=== PATIENT | female | born 1995 | race Caucasian/White ===

== ENCOUNTER 2016-08-28 20:11 | Emergency (ER) | payer OTHER ==
[~2016-08-28] VITALS: Ht 160 cm; Wt 72.8 kg
[~2016-08-28 20:11] MED LIST: AMT50 PO; TRAMTAB5 PO
[2016-08-28 20:15] VITALS: TEMP 36.7; Ht 160 cm; Wt 72.8 kg
[2016-08-28] MEDS ORDERED: KETOROLAC TROMETHAMINE 30 MG/ML VIAL IV STA (20:39)
[2016-08-28] MEDS ORDERED: SODIUM CHLORIDE 0.9% 1000ML 1,000 ML IV STA (20:39)
--- NOTE | 2016-08-28 20:45 | EMERGENCY ROOM VISIT NOTE ---
History Report prepared by Elliot: Mame Roldan Under the Supervision of: Dr. Harjinder Andres M.D. First contact with patient: 20:21 Chief Complaint: URINARY SYMPTOMS Stated Complaint: LOW BACK PAIN,ABDPAIN,TROUBLE BREATHING History of Present Illness The patient is a 21 year old female who presents to the Emergency Room with complaints of worsening urinary symptoms for the past 3 days. She notes increased urinary frequency and foul-smelling urine. She is also complaining of lower abdominal pain and right flank pain. She has had UTIs in the past, but this one is different because she is not experiencing any dysuria or burning with urination. The patient reports intermittent fevers and chills. Her LNMP was 2 weeks ago. She denies any chance of a retained tampon. The patient rates her current pain as a 2/10 in severity. She states that lying still helps to alleviate her pain. Source of History: patient Onset: 3 days ago Position: other (urinary bladder) Symptom Intensity: 2/10 Quality: other (foul-smelling) Timing: worsening Modifying Factors (Relieving): other (lying still) Associated Symptoms: + fevers, + chills, + abdominal pain, + back pain Review of Systems See HPI for pertinent positives & negatives. A total of 10 systems reviewed and were otherwise negative. Past Medical & Surgical Medical Problems: (1) Concussion, unspecified Surgical Problems: (1) History of cardiac cath Family History Cancer Diabetes mellitus Heart disease Hypertension Social History Smoking Status: Never Smoker Smokeless Tobacco Use: No Alcohol Use: none Drug Use: none Marital Status: in relationship Housing Status: lives with significant other Occupation Status: employed Current/Historical Medications Scheduled Amitriptyline Hcl (Elavil), 25 MG PO HS Aspirin (Aspirin Ec), 81 MG PO DAILY Control Pills ( Control Pills), 1 TAB PO DAILY Sulfa/Trimethoprim (Bactrim Ds 800MG/160MG), 1 TAB PO BID Scheduled PRN Escitalopram Oxalate (Lexapro), 1 TAB PO DAILY PRN for Anxiety Oxycodone Immediate Rel Tab (Roxicodone Ir), 1-2 TAB PO Q4H PRN for Severe Pain Allergies Coded Allergies: No Known Allergies (Unverified , 08/28/16) Physical Exam Vital Signs Date Time Temp Pulse Resp B/P (MAP) Pulse Ox O2 Delivery O2 Flow Rate FiO2 6/26/17 00:00 88 18 120/74 100 08/28/16 22:18 87 18 111/68 98 08/28/16 20:15 36.7 86 16 121/82 99 Room Air Physical Exam GENERAL: Patient is a healthy-appearing well-nourished young female. HEAD: Normocephalic atraumatic EYES: Ocular movements intact pupils equal and react to light OROPHARYNX mucous membranes are moist no exudates present no erythema or edema present NECK: Supple no nuchal rigidity CHEST: Good equal expansion LUNGS: Clear and equal to auscultation CARDIAC: Normal S1 and S2 ABDOMEN: Soft nontender no guarding BACK: No CVA tenderness EXTREMITIES: No pain upon palpation normal muscle strength in all groups no clubbing cyanosis or edema NEURO: Patient is following commands and answering questions appropriately. Alert and oriented x3 Cranial Nerves 2-12 grossly intact Medical Decision & Procedures ER Provider Diagnostic Interpretation: Radiology results as stated below per my review and radiologist interpretation: RENAL ULTRASOUND HISTORY: Pain Pt c/o b/l flank pain COMPARISON: None. FINDINGS: Right kidney: Maximum dimension 10.4 cm. No evidence for hydronephrosis. Normal corticomedullary differentiation and cortical thickness. Left kidney: Maximum dimension 11.7 cm. No evidence for hydronephrosis. Normal corticomedullary differentiation and cortical thickness. Bladder: No bladder wall thickening. The bilateral ureteral jets were identified. IMPRESSION: Normal renal ultrasound. Electronically signed by: Jorgito Myers M.D. 08/28/2016 10:53 PM Dictated Date/Time: 08/28/2016 10:52 PM Laboratory Results 08/28/16 20:50 Red Blood Count 4.17, Mean Corpuscular Volume 87.3, Mean Corpuscular Hemoglobin 29.5, Mean Corpuscular Hemoglobin Concent 33.8, Mean Platelet Volume 8.4, Neutrophils (%) (Auto) 53.7, Lymphocytes (%) (Auto) 35.6, Monocytes (%) (Auto) 9.7, Eosinophils (%) (Auto) 0.4, Basophils (%) (Auto) 0.4, Neutrophils # (Auto) 2.99, Lymphocytes # (Auto) 1.98, Monocytes # (Auto) 0.54, Eosinophils # (Auto) 0.02, Basophils # (Auto) 0.02 08/28/16 20:50 Test 08/28/16 20:50 08/28/16 21:40 White Blood Count 5.56 K/uL (4.8-10.8) Red Blood Count 4.17 M/uL (4.2-5.4) Hemoglobin 12.3 g/dL (12.0-16.0) Hematocrit 36.4 % (37-47) Mean Corpuscular Volume 87.3 fL (80-100) Mean Corpuscular Hemoglobin 29.5 pg (25-34) Mean Corpuscular Hemoglobin Concent 33.8 g/dl (32-36) Platelet Count 248 K/uL (130-400) Mean Platelet Volume 8.4 fL (7.4-10.4) Neutrophils (%) (Auto) 53.7 % Lymphocytes (%) (Auto) 35.6 % Monocytes (%) (Auto) 9.7 % Eosinophils (%) (Auto) 0.4 % Basophils (%) (Auto) 0.4 % Neutrophils # (Auto) 2.99 K/uL (1.4-6.5) Lymphocytes # (Auto) 1.98 K/uL (1.2-3.4) Monocytes # (Auto) 0.54 K/uL (0.11-0.59) Eosinophils # (Auto) 0.02 K/uL (0-0.5) Basophils # (Auto) 0.02 K/uL (0-0.2) RDW Standard Deviation 43.9 fL (36.4-46.3) RDW Coefficient of Variation 13.7 % (11.5-14.5) Immature Granulocyte % (Auto) 0.2 % Immature Granulocyte # (Auto) 0.01 K/uL (0.00-0.02) Anion Gap 11.0 mmol/L (3-11) Est Creatinine Clear Calc Drug Dose 113.0 ml/min Estimated GFR () 132.4 Estimated GFR (Non- 114.2 BUN/Creatinine Ratio 12.8 (10-20) Calcium Level 8.6 mg/dl (8.5-10.1) Total Bilirubin 0.2 mg/dl (0.2-1) Direct Bilirubin < 0.1 mg/dl (0-0.2) Aspartate Amino Transf (AST/SGOT) 16 U/L (15-37) Alanine Aminotransferase (ALT/SGPT) 15 U/L (12-78) Alkaline Phosphatase 61 U/L (45-117) Total Protein 7.4 gm/dl (6.4-8.2) Albumin 3.6 gm/dl (3.4-5.0) Lipase 99 U/L (73-393) Urine Color YELLOW Urine Appearance CLEAR (CLEAR) Urine pH 5.5 (4.5-7.5) Urine Specific [place] 1.021 (1.000-1.030) Urine Protein NEG (NEG) Urine Glucose (UA) NEG (NEG) Urine Ketones 2+ (NEG) Urine Occult Blood NEG (NEG) Urine Nitrite NEG (NEG) Urine Bilirubin NEG (NEG) Urine Urobilinogen NEG (NEG) Urine Leukocyte Esterase NEG (NEG) Urine Test NEG (NEG) Labs reviewed by ED physician. Medications Administered Medications (Trade) Dose Ordered Sig/Cedric Route Start Time Stop Time Status Last Admin Dose Admin Sodium Chloride 1,000 ml @ 999 mls/hr Q1H1M STAT IV 08/28/16 20:39 08/28/16 21:39 DC 08/28/16 21:00 999 MLS/HR Ketorolac Tromethamine (Toradol Inj) 30 mg NOW STAT IV 08/28/16 20:39 08/28/16 20:41 DC 08/28/16 20:59 30 MG Ceftriaxone Sodium (Rocephin Inj) 1 gm NOW STAT IV 08/28/16 22:52 08/28/16 22:54 DC 08/28/16 23:21 1 GM Trimethoprim/ Sulfamethoxazole (Sulfameth/ Trimeth Ds 800/ 160MG Home Pack) 1 homepack UD ONCE PO 08/28/16 23:00 08/28/16 23:01 DC 08/28/16 23:55 1 HOMEPACK Oxycodone HCl (Roxicodone Immediate Rel 5MG Home Pack) 1 homepack UD ONCE PO 08/28/16 23:00 08/28/16 23:01 DC 08/28/16 23:55 1 HOMEPACK ED Course 2025: Past medical records reviewed. The patient was evaluated in room C6. A complete history and physical examination was performed. 2038: Toradol 30 mg IV, NSS 1000 ml @ 999 mls/hr IV 2252: Rocephin 1 gm IV 2253: I reassessed the patient at this time. She is feeling better and resting comfortably. I discussed the results and treatment plan with the patient. I answered all pertaining questions that she had. She expressed understanding and verbalized agreement. The patient will be discharged home. 2300: Oxycodone HCl PO 1 homepack, Oxycodone/Acetaminophen PO 1 homepack, Trimethoprim/Sulfamethoxazole PO 1 homepack Medical Decision Differential diagnosis: Etiologies such as renal colic, appendicitis, diverticulitis, mesenteric ischemia, aortic pathology, infections, inflammatory bowel disease, PUD, biliary pathology, UTI, as well as others were entertained. Medication Reconciliation: I attest that I have personally reviewed the patient' s current medication list. Blood Pressure Screening: Patient was found to have normal blood pressure on screening and does not require follow up. This is a 21-year-old female who presents emergency department complaining of urinary symptoms. She has a normal white blood cell count normal renal profile normal liver profile normal lipase. She has a very benign abdominal examination. Serial abdominal examinations were performed on the patient in the emergency department and no tended patient exhibit a surgical abdomen. She does not appear to have any evidence of infection in her urine however the patient asked that we could achieve her for urinary tract infection. For this reason the patient was given Rocephin and will be started on Bactrim at home. Her ultrasound does not show any evidence of stones. I do believe that the patient is well enough to be discharged home for follow-up with her primary care physician. Patient was in agreement with the treatment plan. Impression Primary Impression: Symptoms of urinary tract infection Scribe Attestation The scribe's documentation has been prepared under my direction and personally reviewed by me in its entirety. I confirm that the note above accurately reflects all work, treatment, procedures, and medical decision making performed by me. Departure Information Dispostion Home / Self-Care Prescriptions Sulfa/Trimethoprim (Bactrim Ds 800MG/160MG) Tab 1 TAB PO BID for 7 Days, #14 TAB Prov: Harjinder Andres MD 08/28/16 Oxycodone Immediate Rel Tab (ROXICODONE IR) 5 Mg Tab 1-2 TAB PO Q4H Y for Severe Pain, #14 TAB Prov: Harjinder Andres MD 08/28/16 Referrals Anyi Bhatt D.O. (PCP) Forms HOME CARE DOCUMENTATION FORM, IMPORTANT VISIT INFORMATION Patient Instructions ED UTI Cystitis Female, [facility] Additional Instructions You received narcotic or benzodiazepene medication while in the emergency room today. Do not drive, operate heavy machinery, or drink alcohol under the influence of this medication. Take 1000 mg Tylenol every 6 hours Take Oxy for breakthrough pain Radiographs, U/S, and CTs will be reread by a radiologist in the morning. Culture results are usually available in approx 48 hours You have been examined and treated today on an emergency basis only. This is not a substitute for, or an effort to provide, complete comprehensive medical care. It is impossible to recognize and treat all injuries or illnesses in a single emergency department visit. It is therefore important that you follow up closely with Dr Bhatt. Call as soon as possible for an appointment. Thank you for your time and consideration. I look forward to speaking with you again soon. Please don't hesitate to call us if you have any questions.
[2016-08-28 21:00] LABS: BASO % 0.4 %; BASO ABS # 0.02 K/uL (0-0.2); COMPLETE YES; EOS % 0.4 %; HEMATOCRIT 36.4 % (37-47); IG% 0.2 %; LYMPH % 35.6 %; LYMPH ABS # 1.98 K/uL (1.2-3.4); MEAN CELL VOLUME 87.3 fL (80-100); MEAN CORPUSCULAR HEMOGLOBIN 29.5 pg (25-34); MEAN CORPUSCULAR HGB CONC 33.8 g/dl (32-36); MEAN PLATELET VOLUME 8.4 fL (7.4-10.4); MONO % 9.7 %; NEUT % 53.7 %; PLATELET COUNT 248 K/uL (130-400); RED BLOOD COUNT 4.17 M/uL (4.2-5.4); WHITE BLOOD COUNT 5.56 K/uL (4.8-10.8)
[2016-08-28] MEDS ORDERED: ASPI81TA28 PO (21:02)
[2016-08-28] MEDS ORDERED: BCPILLS PO (21:02)
[2016-08-28] MEDS ORDERED: ESCI1TAB9 PO (21:03)
[2016-08-28 21:18] LABS: ALT/SGPT 15 U/L (12-78); AST/SGOT 16 U/L (15-37); BLOOD UREA NITROGEN 10 mg/dl (7-18); BUN/CREATININE RATIO 12.8 (10-20); CALCIUM 8.6 mg/dl (8.5-10.1); CARBON DIOXIDE 21 mmol/L (21-32); CHLORIDE 110 mmol/L (98-107); CREATININE 0.74 mg/dl (0.60-1.20); GLUCOSE 82 mg/dl (70-99); POTASSIUM 3.7 mmol/L (3.5-5.1); SODIUM 142 mmol/L (136-145)
[2016-08-28 21:21] LABS: ALKALINE PHOSPHATASE 61 U/L (45-117)
[2016-08-28 21:56] LABS: URINE APPEARANCE CLEAR (CLEAR); URINE BILIRUBIN NEG (NEG); URINE COLOR YELLOW; URINE NITRITE NEG (NEG); URINE PH 5.5 (4.5-7.5); URINE SPECIFIC GRAVITY 1.021 (1.000-1.030); UROBILINOGEN NEG (NEG); ZZUR CULT IF INDIC CLEAN CATCH NO
[2016-08-28 21:58] LABS: MANUAL MICROSCOPIC REQUIRED? NO; REVIEW REQ? NO
[2016-08-28] MEDS ORDERED: CEFTRIAXONE SOD INJ 1 GM ADDVIAL IV STA (22:52)
--- NOTE | 2016-08-28 22:54 | DIAGNOSTIC IMAGING REPORT ---
RENAL ULTRASOUND HISTORY: Pain Pt c/o b/l flank pain COMPARISON: None. FINDINGS: Right kidney: Maximum dimension 10.4 cm. No evidence for hydronephrosis. Normal corticomedullary differentiation and cortical thickness. Left kidney: Maximum dimension 11.7 cm. No evidence for hydronephrosis. Normal corticomedullary differentiation and cortical thickness. Bladder: No bladder wall thickening. The bilateral ureteral jets were identified. IMPRESSION: Normal renal ultrasound. Electronically signed by: Jorgito Myers M.D. 08/28/2016 10:53 PM Dictated Date/Time: 08/28/2016 10:52 PM
[2016-08-28] MEDS ORDERED: OXYC1TAB3 PO (22:57)
[2016-08-28] MEDS ORDERED: SULF800T23 PO (22:57)
[2016-08-28] MEDS ORDERED: OXYCODONE IR HOME PACK PO ONE (23:00)
[2016-08-28] MEDS ORDERED: PERCOCET HOME PACK PO ONE (23:00)
[2016-08-28] MEDS ORDERED: SEPTRA DS HOME PACK 1 EA VIAL PO ONE (23:00)
[2016-08-29] VITALS: BP 120/74; PULSE 88; O2SAT 100
== END 2016-08-29 | disposition home or self-care (01) ==
LOC: C.EDB 20:12 → C.EDC 08-29
DX: N39.0 Urinary tract infection, site not specified (principal); M54.5 Low back pain